=== PATIENT | male | born 1960 | race Caucasian/White ===

== ENCOUNTER 2018-08-15 07:39 | Day surgery (SDC) | payer BC ==
--- NOTE | 2018-05-20 18:36 | HP ---
PREOPERATIVE HISTORY AND PHYSICAL: DATE OF SURGERY/ADMISSION: 05/23/18 [facility] DATE OF OFFICE VISIT/ENCOUNTER: 04/30/18 ATTENDING SURGEON: Erika Rinaldi MD * (DICTATED BY KARMA HUNG) PROCEDURE: Left elbow removal of hardware. CHIEF COMPLAINT: Painful hardware, left elbow. HISTORY OF PRESENT ILLNESS: This is a 57-year-old male who complains of pain in his left elbow. He was treated for a radial head fracture in [address] Rinaldi. Since then, he has developed a mass and pain in his left elbow. He has had some decreased range of motion over several years. He saw Dr. Will initially for x- rays and was referred to Dr. Rinaldi for further evaluation and treatment considerations. X-rays of the left elbow showed that there is a loose screw adjacent to the radial head. The patient would like to have this removed. PAST MEDICAL HISTORY: 1. Environmental allergies. 2. GERD. PAST SURGICAL HISTORY: 1. Radial head fixation, left elbow, 2009. 2. Hernia repair. 3. Nose surgery. MEDICATIONS: 1. Radha Allergy 180 mg daily. 2. Cialis 5 mg daily. 3. Fish oil 300 mg daily. 4. Omeprazole 40 mg daily. 5. Pantoprazole sodium 40 mg daily. ALLERGIES: CODEINE causes hallucinations and nausea. FAMILY MEDICAL HISTORY: Heart disease. 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 He denies tobacco use, recreational drug use, and does not drink alcohol. REVIEW OF SYSTEMS: General: Negative for fevers, chills, unexplained weight loss or gain. No known anesthesia problems. HEENT: Negative for headache, lightheadedness, syncopal episodes, visual changes. Integumentary: Negative for abrasions, lesions, or open wounds. Cardiothoracic: Negative for hypertension, chest pain, palpitations, edema. Respiratory: Negative for shortness of breath with exertion, chronic cough, wheezing. GI: Negative for nausea, vomiting, diarrhea, constipation, GERD. : Negative for nocturia, urinary frequency, urgency, history of UTIs, kidney problems. Musculoskeletal: Positive for current complaint. Negative for chronic or intermittent back pain. Neurological: Negative for paresthesias, numbness, history of seizure, stroke, poor balance. Endocrine: Negative for diabetes and thyroid issues. Hematologic: Negative for easy bruising, anemia, bleeding disorders, history of DVT. Infectious Disease: Negative for history of MRSA, hepatitis C, HIV. PHYSICAL EXAMINATION GENERAL: Well-developed, well-nourished 57-year-old male, in no acute distress. VITAL SIGNS: Height 5 feet 10 inches, weight 235 pounds. Pulse rate 58, blood pressure 126/70. HEENT: Normocephalic, atraumatic. Pupils are equal, round, and reactive to light and accommodation. Extraocular movements are intact. Throat is clear. NECK: Supple. No palpable lymph nodes. PULMONARY: Lungs are clear to auscultation bilaterally. No wheezes, rales, or rhonchi. CARDIOVASCULAR: Regular rate and rhythm. S1, S2. No murmurs, rubs, or gallops. No edema. ABDOMEN: Positive bowel sounds. Soft, nontender. NEUROLOGICAL: Alert and oriented x3. Cranial nerves II through XII are intact. Sensation is intact to light touch. MUSCULOSKELETAL: On exam of his left elbow, he lacks about 20 degrees of extension. He has minimal supination. He has good flexion and pronation. He has a tender mass on the lateral aspect of his elbow posterior to a healed surgical scar. IMAGING STUDIES: X-rays AP, lateral and oblique of the left elbow show a loose screw adjacent to the radial head. IMPRESSION: Painful hardware, left elbow. PLAN: The patient is scheduled to undergo a left elbow removal of hardware with Dr. Rinaldi on 05/23/18. He will return to the office 10 days postop for followup and suture removal. A prescription for Ultracet was e-scribed to the patient's pharmacy for postoperative pain management. KARMA HUNG [id number]/[facility] #: [id number] [facility]
--- NOTE | 2018-07-31 22:39 | HP ---
PREOPERATIVE HISTORY AND PHYSICAL: DATE OF ADMISSION: 08/15/18 [facility] CHIEF COMPLAINT: Left elbow pain. HISTORY OF PRESENT ILLNESS: Roshan Gage is a 58-year-old man, who had a fracture of his left radial head several years ago. I treated this with open reduction and internal fixation. Over the summer, he started having increased pain in his elbow and he saw Dr. Will. X-ray shows that one of the screws that was placed has migrated out of the bone. He presents for hardware removal from the left elbow. PAST MEDICAL HISTORY: Heart murmur, allergies, back pain. PAST SURGICAL HISTORY: Left elbow surgery, hernia repair, nose surgery. MEDICATIONS: 1. Pantoprazole sodium 40 mg p.o. daily. 2. Cialis 5 mg p.o. daily. 3. Fish oil 300 mg p.o. daily. 4. Radha 180 mg p.o. daily. 5. Omeprazole 40 mg p.o. daily. ALLERGIES: To CODEINE. FAMILY HISTORY: Heart disease. SOCIAL HISTORY: He works at a daycare. He denies tobacco and alcohol use. REVIEW OF SYSTEMS: Negative for cephalic, cardiovascular, respiratory, gastrointestinal, genitourinary, other musculoskeletal, skin, neurologic, endocrine, and hematologic symptoms. PHYSICAL EXAMINATION VITAL SIGNS: He is 70 inches tall, weight is 236 pounds. Blood pressure 142/82 , respirations 18, temperature 96.8. HEENT: Exam is unremarkable. His eye movements are concentric. NECK: He has good range of motion of his neck with minimal pain. No masses are palpated. LUNGS: Clear to auscultation. Good inspiratory effort. No wheezing. CARDIAC: Regular rate and rhythm without murmur. EXTREMITIES: He has a well-healed surgical scar on the lateral aspect of his elbow, a prominent screw which is very tender, and a prominent suture, which is also quite tender. He lacks about 20 degrees of full elbow extension. He has good flexion, reasonably good rotation. Neurovascular function is intact. NEUROLOGICAL: He is alert and oriented without focal deficit. IMPRESSION: Left elbow painful hardware. PLAN: Plan is for hardware removal from the left elbow. I will see the patient back in followup for reevaluation in approximately 10 days postop. [id number]/[facility] #: [id number] [facility]
[~2018-08-15 07:39] MED LIST: Buffered Lidocaine 0.9% SYRIN* 5 ML/SYR SYRINGE INTRADERM ONE
[2018-08-15] MEDS ORDERED: Lidocaine 1% INJ* 10 MG/ML 30 ML SDV ONE (08:47)
[2018-08-15] MEDS ORDERED: fentaNYL* 50 MCG/ML 2 ML VIAL (100 MCG VIAL) ONE (08:53)
[2018-08-15] MEDS ORDERED: Lidocaine 2% PF * 5 ML VIAL ONE (08:53)
[2018-08-15] MEDS ORDERED: Propofol* 10 MG/ML 20 ML BTL IV PUSH ONE (08:53)
[2018-08-15] MEDS ORDERED: Naloxone* 0.4 MG/ML 1 ML VIAL IV PRN (09:04)
[2018-08-15 09:35] VITALS: BP 116/72
[2018-08-15] MEDS ORDERED: Ibuprofen TAB* 600 MG ONE (09:46)
--- NOTE | 2018-08-16 04:32 | OP ---
DATE OF OPERATION: 08/15/18 [facility] DATE OF : 60 SURGEON: Erika Rinaldi MD CONTRACT ASSOCIATE: KARMA Rosario ANESTHESIA: Local MAC. PRE-OP DIAGNOSIS: Painful hardware in the left elbow. POST-OP DIAGNOSIS: Painful hardware in the left elbow. OPERATIVE PROCEDURE: Hardware removal, left elbow. INDICATIONS: Roshan is a 58-year-old man who had an ORIF of his radial head several years ago. He recently developed pain in his elbow and a lump and x- rays showed that one of the Acutrak screws had come completely out of the radial head and was subcutaneous in the lateral aspect of his elbow. Additionally, he has a painful bump in the very proximal aspect of the incision. He presents for hardware removal, left elbow. ESTIMATED BLOOD LOSS: Zero. DESCRIPTION OF PROCEDURE: The patient was brought to the operating room, was given a sedation anesthetic and local anesthetic with 10 cc of 1% plain lidocaine. The skin of his left hand and elbow was prepped and draped in the usual sterile fashion. The upper extremity was exsanguinated and the tourniquet elevated to 250 mmHg. Small incision was made at the very proximal aspect of the incision and under this was a nonabsorbable suture and this was removed without difficulty. The wound was irrigated and skin edges reapproximated. Next, the second incision was made over the palpable screw and dissected bluntly through the subcutaneous tissue and retrieved the screw, which was intact. The wound was irrigated and skin edges were reapproximated with 4-0 nylon suture. The wounds were dressed with Xeroform, 4x4, Webril, and an Emmett wrap. The patient tolerated the procedure well and was brought to the recovery room in good condition. [id number]/[facility] #: [id number] [facility]
== END 2018-08-15 10:02 | disposition home or self-care (01) ==
LOC: OREAST 07:39
PROVIDERS: ATTEND Orthopaedic Surgery
DX: T84.84XA Pain due to internal orthopedic prosthetic devices, implants and grafts, initial encounter (principal); Y83.1 Surgical operation with implant of artificial internal device as the cause of abnormal reaction of the patient, or of later complication, without mention of misadventure at the time of the procedure; S52.122D Displaced fracture of head of left radius, subsequent encounter for closed fracture with routine healing; X58.XXXD Exposure to other specified factors, subsequent encounter; Y92.9 Unspecified place or not applicable; K21.9 Gastro-esophageal reflux disease without esophagitis
CPT/HCPCS: A9270-GY; J2704; J3010